=== PATIENT | female | born 2005 | race Caucasian/White ===

== ENCOUNTER 2025-05-20 12:46 | Day surgery (SDC) | payer OTHER ==
[2025-05-20] MEDS ORDERED: methylPREDNISolone Acetate 80 mg (1 mL) VIAL IM SCH (13:30)
[2025-05-20] MEDS ORDERED: Ropivacaine 0.2% HCl/PF (40 MG/20 ML VIAL) IM SCH (13:30)
[2025-05-20] MEDS ORDERED: Sodium Bicarbonate 2.5 MEQ/5 ML SDV ONE (13:38)
[2025-05-20] MEDS ORDERED: Lidocaine 1% w/Epinephrine 1:100K 20 ML VIAL ONE (13:38)
== END 2025-05-20 14:35 | disposition home or self-care (01) ==
LOC: ULT 12:46
PROVIDERS: ATTEND Orthopaedic Surgery
DX: S73.191A Other sprain of right hip, initial encounter (principal); X58.XXXA Exposure to other specified factors, initial encounter
CPT/HCPCS: 20611; J1040; J2795